=== PATIENT | female | born 1955 | race Hispanic/Latino ===

== ENCOUNTER 2018-02-11 14:29 | Emergency (ER) | payer OTHER ==
[2018-02-11 15:27] LABS: VENOUS BLOOD GAS BASE EXCESS 0.6 mmol/L (0.0-2.0); VENOUS BLOOD GAS PCO2 36 mmHg (40-60); VENOUS BLOOD GAS PO2 41 mm/Hg (30-55); VENOUS BLOOD PH 7.44 (7.32-7.43)
[2018-02-11 15:29] LABS: BASO % 0.8 % (0.0-2.0); EOS # 0.1 K/uL (0.0-0.7); EOS % 2.1 % (0.0-4.0); HEMOGLOBIN 12.5 g/dL (12.0-16.0); LYMPH # 1.2 K/uL (1.0-4.3); LYMPH % 19.8 % (20.0-40.0); MEAN CELL VOLUME 92.9 fl (81.0-99.0); MEAN CORPUSCULAR HEMOGLOBIN 31.8 pg (27.0-31.0); MEAN CORPUSCULAR HGB CONC 34.2 g/dL (33.0-37.0); MEAN PLATELET VOLUME 7.8 fl (7.2-11.7); MONO # 0.7 K/uL (0.0-0.8); MONO % 11.2 % (0.0-10.0); NEUT # 4.1 K/uL (1.8-7.0); NEUT % 66.1 % (50.0-75.0); RBC 3.93 Mil/uL (3.80-5.20); WHITE BLOOD COUNT 6.2 K/uL (4.8-10.8)
[2018-02-11 15:33] LABS: SQUAMOUS EPITHIAL 3 /hpf (0-5); URINE BACTERIA RARE (<OCC); URINE BILIRUBIN NEGATIVE (NEGATIVE); URINE BLOOD LARGE (NEGATIVE); URINE CLARITY CLOUDY (Clear); URINE COLOR YELLOW (YELLOW); URINE GLUCOSE (UA) NEG (Normal); URINE LEUKOCYTE ESTERASE TRACE Leu/uL (Negative); URINE PROTEIN 30 mg/dL (NEGATIVE); URINE UROBILINOGEN 0.2-1.0 mg/dL (0.2-1.0)
[2018-02-11 15:35] LABS: PROTHROMBIN TIME 11.6 Seconds (9.8-13.1)
[2018-02-11 15:37] LABS: PARTIAL THROMBOPLASTIN TIME 29.2 Seconds (25.6-37.1)
[2018-02-11 15:40] LABS: BLOOD UREA NITROGEN 13 mg/dl (7-17); CALCIUM 9.2 mg/dL (8.4-10.2); GFR NON-AFRICAN AMERICAN > 60
--- NOTE | 2018-02-11 16:53 | ED PDOC ---
HPI: Female Pain Time Seen by Provider: 02/11/18 14:45 Chief Complaint (Nursing): Female Genitourinary Chief Complaint (Provider): Female Genitourinary History Per: Patient History/Exam Limitations: no limitations Onset/Duration Of Symptoms: Days Current Symptoms Are (Timing): Still Present Associated Symptoms: denies: Fever Additional Complaint(s): Yuki Brunner is a 63 year old female with no past medical who is presenting to the ED for evaluation of vaginal bleeding onset today. Patient states that she has been here for three weeks visiting her son, from [facility]. She reports that two days ago, she had lower abdominal pain that felt like menstrual cramps and at the same time noticed yellow pinkish vaginal discharge, but nothing that made her feel ill. Today, she reports that she had 3 episodes of heavy vaginal bleeding that was heavier than her periods she used to have. She admits that missed one or two of her hormone replacement therapy pills, but is unsure when she missed them, as she was looking at the pills and realized she should have taken more. Patient denies any history of anemia, dizziness, or fevers. Of note, patient had polyp removed from uterus twice, and is on hormone replacement therapy due to lower estrogen levels past menopause. PMD: none provided Abnormal Vaginal Bleeding: Yes Past Medical History Reviewed: Historical Data, Nursing Documentation, Vital Signs Vital Signs: Last Vital Signs Temp 98.7 F 02/11/18 14:37 Pulse 80 02/11/18 14:37 Resp 16 02/11/18 14:37 BP 151/92 H 02/11/18 14:37 Pulse Ox 99 02/11/18 14:37 - Medical History PMH: No Chronic Diseases Denies: Anemia - Surgical History Other surgeries: polyp removal - Family History Family History: States: Unknown Family Hx - Social History Current smoker - smoking cessation education provided: No Alcohol: None Drugs: Denies - Immunization History Hx Tetanus Toxoid Vaccination: No Hx Influenza Vaccination: No Hx Pneumococcal Vaccination: No - Allergies Allergies/Adverse Reactions: Allergies Allergy/AdvReac Type Severity Reaction Status Date / Time Penicillins Allergy RASH Verified 02/11/18 14:36 Review of Systems ROS Statement: Except As Marked, All Systems Reviewed And Found Negative Constitutional: Negative for: Fever Gastrointestinal: Positive for: Abdominal Pain Genitourinary Female: Positive for: Vaginal Discharge, Vaginal Bleeding Neurological: Negative for: Dizziness Physical Exam - Reviewed Nursing Documentation Reviewed: Yes Vital Signs Reviewed: Yes - Physical Exam Appears: Positive for: Non-toxic, No Acute Distress Head Exam: Positive for: ATRAUMATIC, NORMAL INSPECTION, NORMOCEPHALIC Skin: Positive for: Normal Color, Warm, DRY Eye Exam: Positive for: Normal appearance (no conjunctival pallor), EOMI, PERRL ENT: Positive for: Normal ENT Inspection Neck: Positive for: Normal, Painless ROM, Supple Cardiovascular/Chest: Positive for: Regular Rate, Rhythm. Negative for: Murmur Respiratory: Positive for: Normal Breath Sounds. Negative for: Respiratory Distress Gastrointestinal/Abdominal: Positive for: Normal Exam, Soft. Negative for: Tenderness Back: Positive for: Normal Inspection. Negative for: L CVA Tenderness, R CVA Tenderness Extremity: Positive for: Normal ROM, Other (distal pulses 2+). Negative for: Deformity, Swelling Neurologic/Psych: Positive for: Alert, Oriented. Negative for: Motor/Sensory Deficits - Laboratory Results Result Diagrams: 02/11/18 15:10 02/11/18 15:10 - ECG O2 Sat by Pulse Oximetry: 99 (RA) Pulse Ox Interpretation: Normal Medical Decision Making Medical Decision Making: Time: 15:10 A/P: Workup for new abnormal vaginal bleeding --Labs, Pelvic Ultrasound --Reassess Patient Scribe Attestation: Documented by, Chely Hernandez acting as a scribe for Aileen Balderas MD. Provider Scribe Attestation: All medical record entries made by the Scribe were at my direction and personally dictated by me. I have reviewed the chart and agree that the record accurately reflects my personal performance of the history, physical exam, medical decision making, and the department course for this patient. I have also personally directed, reviewed, and agree with the discharge instructions and disposition. Pt with stable vitals. Labs WNL. US shows blood and clots in the uterus with small polyps. Pt will follow up with biological aide in [facility] when she returns home next week. Pt given referral to [facility] if she decides to follow up here. Return parameters discussed. Disposition - Clinical Impression Clinical Impression: Female genitourinary symptoms, Abnormal vaginal bleeding - Disposition [facility]errals: [facility] [Outside] Disposition: Routine/Home Disposition Time: 19:40 Condition: STABLE Additional Instructions: Follow up with primary medical doctor/biological aide as soon as possible. Return to the emergency department if symptoms worsen or if new symptoms develop (weakness, dizziness, LEMUS, worsened bleeding etc.) Instructions: Dysfunctional Uterine Bleeding (ED) Forms: [employer] (Bel[place]ian) Print Language: CAPE VERDEAN
[2018-02-11 20:50] VITALS: BP 123/74; PULSE 81; RESP 14; TEMP 97.9
--- NOTE | 2018-02-12 12:51 | US ---
Date of service: 02/11/2018 HISTORY: pelvic pain and vag bleed COMPARISON: None available. TECHNIQUE: Transabdominal ultrasound examination of the pelvis was obtained. FINDINGS: UTERUS: Measures 13.9 x 7.1 x 5.6 cm. The uterus demonstrates heterogeneous echotexture. ENDOMETRIUM: There is a complex fluid collection in the endometrial cavity measures 11 x 5 x 4 centimeter. There are echogenic foci in this collection. Findings may represent hematoma. The possibility of endometrial or cervical neoplasm should be considered. The endometrial cavity demonstrate diffuse irregular wall. CERVIX: The uterine cervix is heterogeneous and enlarged. There is a heterogeneous mildly echogenic structure at the lower uterine segment and in the cervix. RIGHT OVARY: Measures 2 x 1.8 x 0.8 cm. No solid mass. Normal flow. LEFT OVARY: Measures 2.4 x 1.4 x 1 cm. No solid mass. Normal flow. FREE FLUID: Small amount of free fluid in the cul de sac. OTHER FINDINGS: None. IMPRESSION: Heterogeneous moderately enlarged uterus. Complex fluid collection in the endometrial cavity versus central necrosis of endometrial mass noted. Mildly echogenic mass like structure in the lower uterine segment and in the uterine cervix suspicious for neoplasm. The possibility of cervical or endometrial neoplasm should be considered. Further evaluation is recommended. No evidence of mass lesion or acute pathology in the adnexa. Preliminary report with concordance findings was submitted by [facility] Rad[facility] at 6:49 p.m. on 02/11/2018.
[2018-02-12 15:15] VITALS: O2SAT 99
--- NOTE | 2018-02-12 17:14 | CARD ---
APPROVED REPORT Date of service: 02/11/2018 EKG Measurement Heart [id number] <Conclusion> Sinus rhythm with marked sinus arrhythmia Borderline ECG
== END 2018-02-11 19:40 | disposition home or self-care (01) ==
LOC: H.ER 14:29
DX: N93.9 Abnormal uterine and vaginal bleeding, unspecified (principal); Z88.0 Allergy status to penicillin